=== PATIENT | male | born 1955 | race Two or more races ===

== ENCOUNTER 2020-04-25 20:02 | Emergency (ER) | payer MEDICAID ==
[~2020-04-25] VITALS: Ht 180.3 cm; Wt 81.6 kg
[2020-04-25 20:10] VITALS: BP 121/72
== END 2020-04-25 21:58 | disposition home or self-care (01) ==
LOC: ER 20:06
DX: R91.1 Solitary pulmonary nodule (principal); R05 Cough; R93.89 Abnormal findings on diagnostic imaging of other specified body structures; Z85.038 Personal history of other malignant neoplasm of large intestine
CPT/HCPCS: 71045-TC